=== PATIENT | female | born 1935 | race Caucasian/White ===

== ENCOUNTER 2016-08-22 06:28 | Day surgery (SDC) | payer MEDICARE, BC ==
[~2016-08-22] VITALS: Ht 170.2 cm; Wt 74.4 kg
[~2016-08-22 06:28] MED LIST: AMLODIPINE5 MG PO; ASPIRIN EC325 MG PO; ATENOLOL50 MG PO; BL ADULT ASA81 MG PO; BONIVA150 MG PO; COUMADIN5 MG PO; DIGOXIN0.125 MG PO; FLONASE AL50 MCG/ACT; LIPITOR10 MG PO; LIPITOR20 MG PO; LOSARTAN POT50 MG PO; MAXZIDE-2537.5 MG/TA PO; PANTOPRAZOLE SO40 MG PO; QVAR40 MCG/ACT IN; SPIRIVA HANDIHALER IN; SPIRONO/HCTZ PO; SYNTHROID112 MCG PO; TENORMIN PO; TYLENOL 500MG TAB PO; VAGIFEM10 MCG VA; [UNRECOGNIZED DRUG - OTHER] NAS
[2016-08-22 08:54] VITALS: BP 135/63
== END 2016-08-22 09:12 | disposition home or self-care (01) ==
LOC: ENDO 06:28 → ORM 07:30 → ENDO 08:30
PROVIDERS: ATTEND Internal Medicine Gastroenterology
PROC: 0DB48ZX Excision of Esophagogastric Junction, Via Natural or Artificial Opening Endoscopic, Diagnostic (ICD-10-PCS; principal; 2016-08-22)
PROC: 0DB58ZX Excision of Esophagus, Via Natural or Artificial Opening Endoscopic, Diagnostic (ICD-10-PCS; 2016-08-22)
PROC: 0D718ZZ Dilation of Upper Esophagus, Via Natural or Artificial Opening Endoscopic (ICD-10-PCS; 2016-08-22)
DX: R13.10 Dysphagia, unspecified (principal); K21.9 Gastro-esophageal reflux disease without esophagitis; K59.00 Constipation, unspecified; K29.70 Gastritis, unspecified, without bleeding; K44.9 Diaphragmatic hernia without obstruction or gangrene; K22.2 Esophageal obstruction; K22.8 Other specified diseases of esophagus; J34.89 Other specified disorders of nose and nasal sinuses; I10 Essential (primary) hypertension; I25.10 Atherosclerotic heart disease of native coronary artery without angina pectoris; E78.00 Pure hypercholesterolemia, unspecified; Z86.010 Personal history of colon polyps; Z95.0 Presence of cardiac pacemaker; Z80.0 Family history of malignant neoplasm of digestive organs

== ENCOUNTER → 2018-05-14 | Outpatient (REF) | payer MEDICARE, BC ==
[2018-05-14 08:17] LABS: HEMATOCRIT 49.6 % (37.0-47.0); HEMOGLOBIN 15.7 g/dl (12.0-16.0); MEAN CELL VOLUME 92.7 fL CALC (80.0-100.0); MEAN CORPUSCULAR HGB 29.3 pG CALC (26.0-32.0); MEAN CORPUSCULAR HGB CONC 31.7 g/L CALC (32.0-36.0); RED BLOOD COUNT 5.35 mill/uL (4.20-5.60); RED CELL DISTRI WIDTH 13.5 % (11.5-15.5)
[2018-05-14 09:15] LABS: ALBUMIN 4.3 g/dL (3.2-5.0); ALKALINE PHOSPHATASE 123 u/l (38-126); ANION GAP 11 (6-22 (CALC)); BILIRUBIN, TOTAL 0.7 mg/dL (0.0-1.4); BUN 18 mg/dL (8-23); BUN/CREATININE RATIO 31 (12-20 (CALC)); CALCULATED LDLCHOLESTEROL 173 mg/dL (62-129 (CALC)); CARBON DIOXIDE 34 mmol/l (22-30); CHLORIDE 102 mmol/l (95-108); CHOLESTEROL HDL RATIO 5.8 (<4.4 (CALC)); CREATININE 0.6 mg/dL (0.5-1.0); GFR > 60 ML/MIN (>=60 (CALC)); GFR FOR AFR.AMER. > 60 ML/MIN (>=60 (CALC)); HDL CHOLESTEROL 46 mg/dL (>=40); POTASSIUM 4.2 mmol/l (3.5-5.1); SGOT/AST 32 u/l (9-36); SODIUM 143 mmol/l (137-146); TOTAL CHOLESTEROL 265 mg/dl (0-199); TOTAL PROTEIN 7.2 g/dL (6.3-8.2); TOTAL TRIGLYCERIDES 234 mg/dl (30-149); VLDL CHOLESTROL 47 mg/dl (0-48 (CALC))
[2018-05-14 09:35] LABS: TSH, 3RD GENERATION 0.74 uIU/mL (0.47 - 4.68)
== END | disposition home or self-care (01) ==
LOC: LAB 07:20
PROVIDERS: ATTEND Nurse Practitioner
DX: E03.9 Hypothyroidism, unspecified (principal); E78.49 Other hyperlipidemia; I10 Essential (primary) hypertension; R73.9 Hyperglycemia, unspecified

== ENCOUNTER 2018-07-30 03:17 | Emergency (ER) | payer MEDICARE, BC ==
[~2018-07-30] VITALS: Ht 170.2 cm; Wt 72.7 kg
[2018-07-30] MEDS ORDERED: SYNTHROID100 MCG PO (04:05)
[2018-07-30] MEDS ORDERED: EQ OMEPRAZOLE20 MG PO (04:06)
[2018-07-30] MEDS ORDERED: SUCRALFATE1 GM PO (04:07)
[2018-07-30 04:35] LABS: HEMOGLOBIN 14.8 g/dl (12.0-16.0); IMMATURE GRANULOCYTES 0.3 % (0.0-5.0); MEAN CELL VOLUME 91.1 fL CALC (80.0-100.0); MEAN CORPUSCULAR HGB 29.3 pG CALC (26.0-32.0); MEAN CORPUSCULAR HGB CONC 32.2 g/L CALC (32.0-36.0); NEUT# 4.29 thou/uL (2.00-7.15); RED BLOOD COUNT 5.05 mill/uL (4.20-5.60)
[2018-07-30 04:40] LABS: ALBUMIN 4.4 g/dL (3.2-5.0); ALKALINE PHOSPHATASE 128 u/l (38-126); ANION GAP 9 (6-22 (CALC)); BILIRUBIN, TOTAL 0.5 mg/dL (0.0-1.4); BUN 17 mg/dL (8-23); BUN/CREATININE RATIO 30 (12-20 (CALC)); CARBON DIOXIDE 35 mmol/l (22-30); CHLORIDE 104 mmol/l (95-108); CREATININE 0.6 mg/dL (0.5-1.0); GFR > 60 ML/MIN (>=60 (CALC)); GFR FOR AFR.AMER. > 60 ML/MIN (>=60 (CALC)); POTASSIUM 3.9 mmol/l (3.5-5.1); SGOT/AST 54 u/l (9-36); SODIUM 144 mmol/l (137-146); TOTAL PROTEIN 7.5 g/dL (6.3-8.2)
[2018-07-30 04:52] LABS: MYOGLOBIN 27 ng/mL (0 - 62)
[2018-07-30 05:04] LABS: URINE BILIRUBIN - DIPSTICK NEGATIVE (NEGATIVE); URINE BLOOD DIPSTICK NEGATIVE (NEGATIVE); URINE COLOR YELLOW; URINE GLUCOSE - DIPSTICK NEGATIVE (NEGATIVE); URINE KETONE NEGATIVE (NEGATIVE); URINE LEUK ESTERASE NEGATIVE (NEGATIVE); URINE NITRITE - DIPSTICK NEGATIVE (Negative); URINE PH 6.5 (4.5-8.0); URINE PROTEIN - DIPSTICK NEGATIVE (NEG-TRACE); URINE UROBILINOGEN - DIPSTICK 0.2 E.U./dL (0.2)
[2018-07-30] MEDS ORDERED: ROBITUSSIN AC10 ML PO (06:40)
[2018-07-30] MEDS ORDERED: LEVAQUIN750 MG PO (06:40)
[2018-07-30 06:44] VITALS: BP 145/67
== END 2018-07-30 06:38 | disposition home or self-care (01) ==
LOC: ED 03:17
PROVIDERS: Emergency Medicine
DX: R06.02 Shortness of breath (principal); R91.8 Other nonspecific abnormal finding of lung field; I11.0 Hypertensive heart disease with heart failure; I50.9 Heart failure, unspecified; Z95.0 Presence of cardiac pacemaker